=== PATIENT | female | born 1970 | race Caucasian/White ===

== ENCOUNTER 2020-04-05 21:04 | Emergency (ER) | payer BC ==
[2020-04-06] MEDS ORDERED: MORPHINE SULFATE 10 MG/ML INJ IV ONE ×2 (01:12→04:02)
[2020-04-06] MEDS ORDERED: ONDANSETRON HCL INJ/PF 4 MG/2 ML SDV IV ONE (01:12)
[2020-04-06] MEDS ORDERED: NORMAL SALINE 1000 ML 1,000 ML IV ONE (01:12)
--- NOTE | 2020-04-06 01:14 | ER Document Report ---
ED GI/ - General Chief Complaint: Nausea/Vomiting Stated Complaint: VOMITTING/ABD PAIN Time Seen by Provider: 04/06/20 01:04 Notes: Patient is a 49 year old female that comes to the Emergency Department for chief complaint of sharp mid to upper abdominal pain that started yesterday, vomiting, and a few loose stools. She vomited 3 times today, was only able to eat breakfast. She denies hematemesis or hematochezia. She denies fever, flank p ain, chest pain, shortness of breath, dysuria, vaginal discharge or bleeding. She has had a hysterectomy but no other abdominal surgeries. - Related Data Allergies/Adverse Reactions: Penicillins Allergy (Verified 04/06/20 01:09) Past Medical History - General Information source: Patient - Social History Smoking Status: Never Smoker Chew tobacco use (# tins/day): No Frequency of alcohol use: Occasional Drug Abuse: None Lives with: Family Family History: Reviewed & Not Pertinent Patient has homicidal ideation: No Past Surgical History: Reports: Hx Hysterectomy - Immunizations Immunizations up to date: Yes Hx Diphtheria, Pertussis, Tetanus Vaccination: Yes Review of Systems - Review of Systems Constitutional: No symptoms reported EENT: No symptoms reported Cardiovascular: No symptoms reported Respiratory: No symptoms reported Gastrointestinal: See HPI Genitourinary: No symptoms reported Female Genitourinary: No symptoms reported Musculoskeletal: No symptoms reported Skin: No symptoms reported Hematologic/Lymphatic: No symptoms reported Neurological/Psychological: No symptoms reported Physical Exam - Vital signs Vitals: Temp Pulse Resp BP Pulse Ox 98.1 F 75 20 148/95 H 99 04/05/20 21:19 04/05/20 21:19 04/05/20 21:19 04/05/20 21:19 04/05/20 21:19 - Notes Notes: GENERAL: Patient appears moderately uncomfortable and slightly restless HEAD: Normocephalic, atraumatic. EYES: Pupils equal, round, and reactive to light. Extraocular movements intact. ENT: Oral mucosa dry, tongue midline. Oropharynx unremarkable. Airway patent. LUNGS: Clear to auscultation bilaterally, no wheezes, rales, or rhonchi. No respiratory distress. Non-tender chest wall. HEART: Regular rate and rhythm. No murmur ABDOMEN: Tenderness in the epigastric area and generally over the upper abdomen. Mid to lower abdomen is benign. No rigidity, distention, or guarding noted. Bowel sounds present throughout. GENITOURINARY: Deferred EXTREMITIES: Moves all 4 extremities spontaneously. No edema, normal radial and dorsalis pedis pulses bilaterally. No cyanosis. BACK: no cervical, thoracic, lumbar midline tenderness. No saddle anesthesia, normal distal neurovascular exam. Moves all extremities in full range of motion. NEUROLOGICAL: Alert and oriented x3. Normal speech. Cranial nerves II through XII grossly intact. Strength 5/5 in all extremities. PSYCH: Normal affect, normal mood. SKIN: Warm, dry, normal turgor. No rashes or lesions noted. Course - Re-evaluation Re-evalutation: Initially patient appears uncomfortable. She seems to have waves of pain in the upper abdomen, she has generalized tenderness in the upper abdomen although she is tender in all parts and it is nonspecific. Vital signs unremarkable. CBC shows mild leukocytosis with elevation of neutrophils but no bandemia. Chem istry is unremarkable with unremarkable LFTs, bilirubin, and lipase. Urinalysis unremarkable. Right upper quadrant ultrasound performed but this does not show any concerning findings, no evidence of cholecystitis or obstruction. On evaluation patient is improved, she appears comfortable, patient was given Carafate, Pepcid, she will be reevaluated. On reevaluation patient has tolerated p.o. without any difficulty, she is eating crackers as well, however she has started to have the waves of pain again intermittently. She does not appear as uncomfortable as previously, however because she is starting to have waves of abdominal pain and does intermittently appear quite uncomfortable I recommended CT of the abdomen pelvis to rule out acute abdomen. Patient states she would prefer to be discharged, she states she does feel improved, she states that if she worsens she will return to the e mergency department. I discussed return precautions at length, provided with prescriptions at home for suspected upper gastrointestinal inflammation, patient states understanding and agreement with plan. - Vital Signs Vital signs: Temp Pulse Resp BP Pulse Ox 97.8 F 63 16 133/84 H 100 04/06/20 05:08 04/06/20 05:08 04/06/20 05:08 04/06/20 05:08 04/06/20 05:08 - Laboratory Result Diagrams: 04/06/20 01:19 07/07/20 01:19 Laboratory results interpreted by me: 04/06/20 04/06/20 04/06/20 01:19 01:19 03:25 WBC 12.6 H RBC 5.60 H Hgb 16.6 H Hct 49.4 H Lymph % (Auto) 9.9 L Absolute Neuts (auto) 10.4 H Seg Neutrophils % 82.6 H Sodium 136.6 L Glucose 144 H Total Protein 8.5 H Urine Ketones TRACE H Urine Blood SMALL H Discharge - Discharge Clinical Impression: Upper abdominal pain Condition: Stable Disposition: HOME, SELF-CARE Additional Instructions: Your work-up today shows dehydration but no other concerning findings at this time. The exact cause of your symptoms is uncertain, this could be viral causing inflammation of the upper gastrointestinal tract, vomiting, diarrhea, pain. Symptoms should simply resolve with time. Take medications as prescribed including the nausea medication, start with clear fluids, bland diet, and slowly progress. Follow-up with primary care. Return if you worsen including severe worsening pain, vomiting, fever, or any other concerning or worsening symptoms. Prescriptions: Sucralfate [Carafate 1 gm Tablet] 1 gm PO QID #20 tablet Famotidine [Pepcid 20 mg Tablet] 20 mg PO BID #14 tablet Ondansetron [Zofran Odt 4 mg Tablet] 1 - 2 tab PO Q4H PRN #15 tab.rapdis PRN Reason: For Nausea/Vomiting Forms: Return to Work
[2020-04-06 01:29] LABS: ABSOLUTE BASOPHILS # (AUTO) 0.1 10^3/uL (0.0-0.2); ABSOLUTE EOSINOPHILS # (AUTO) 0.1 10^3/uL (0.0-0.6); ABSOLUTE LYMPHOCYTES (AUTO) 1.3 10^3/uL (0.5-4.7); ABSOLUTE MONOCYTES (AUTO) 0.8 10^3/uL (0.1-1.4); ABSOLUTE NEUT (AUTO) 10.4 10^3/uL (1.7-8.2); BASOPHILS % (AUTO) 0.6 % (0-2); EOSINOPHILS % (AUTO) 0.9 % (0-6); HEMATOCRIT 49.4 % (36.0-47.0); HEMOGLOBIN 16.6 g/dL (12.0-15.5); LYMPHOCYTES % (AUTO) 9.9 % (13-45); MEAN CORPUSCULAR HEMOGLOBIN 29.6 pg (27.0-33.4); MEAN CORPUSCULAR HGB CONC 33.6 g/dL (32.0-36.0); MEAN CORPUSCULAR VOLUME 88 fl (80-97); PLATELET COUNT 344 10^3/uL (150-450); RED CELL DISTRIBUTION WIDTH 13.4 % (11.5-14.0); SEGMENTED NEUTROPHILS % (AUTO) 82.6 % (42-78); TOTAL CELLS COUNTED % (AUTO) 100 %; WHITE BLOOD COUNT 12.6 10^3/uL (4.0-10.5)
[2020-04-06 01:44] LABS: ALBUMIN 4.8 g/dL (3.5-5.0); ALKALINE PHOSPHATASE 75 U/L (38-126); ANION GAP 9 (5-19); ASPARTATE AMINO TRANSFERASE 28 U/L (14-36); BILIRUBIN,TOTAL 0.7 mg/dL (0.2-1.3); BLOOD UREA NITROGEN 12 mg/dL (7-20); CALCIUM 10.2 mg/dL (8.4-10.2); CARBON DIOXIDE 26 mmol/L (22-30); CHLORIDE 102 mmol/L (98-107); GLUCOSE 144 mg/dL (75-110); POTASSIUM 4.7 mmol/L (3.6-5.0); TOTAL PROTEIN 8.5 g/dL (6.3-8.2)
--- NOTE | 2020-04-06 02:47 | RADIOLOGY REPORT (SQ) ---
Ultrasound of the right upper quadrant of the abdomen: 04/06/2020 1:45 AM CDT Technique: Multiple grayscale color Doppler images of the right upper quadrant of the abdomen were obtained. Comparison: None available History: 49-year old patient with epigastric pain, vomiting. Findings: The visualized portions of the hepatic parenchyma appear diffusely echogenic. There is normal directional flow seen within the main portal vein. There is no evidence of pericholecystic fluid, gallbladder wall thickening, or cholelithiasis. The common duct measures 6-7 mm. The right kidney measures up to 10.2 cm in length. The right kidney demonstrates normal cortical echogenicity with no evidence to suggest hydronephrosis. The visualized portions of the IVC, abdominal aorta, and pancreatic head appear normal. No free intraperitoneal fluid is seen. Impression: 1. No cholelithiasis is seen. The common duct is within normal limits of size. 2. Hepatic steatosis
[2020-04-06] MEDS ORDERED: SUCRALFATE 1 GM TABLET PO ONE (02:51)
[2020-04-06] MEDS ORDERED: FAMOTIDINE 20 MG TABLET PO ONE (02:51)
[2020-04-06 03:44] LABS: APPEARANCE,URINE SLIGHTLY-CLOUDY; BILIRUBIN,URINE NEGATIVE (NEGATIVE); COLOR,URINE YELLOW; GLUCOSE, URINE NEGATIVE (NEGATIVE); KETONES,URINE TRACE mg/dL (NEGATIVE); LEUKOCYTE ESTERASE,URINE NEGATIVE (NEGATIVE); NITRITE,URINE NEGATIVE (NEGATIVE); PROTEIN,URINE NEGATIVE (NEGATIVE); URINE SPECIFIC GRAVITY 1.024; UROBILINOGEN,URINE NEGATIVE mg/dL (<2.0)
[2020-04-06] MEDS ORDERED: HYDROCODONE/ACETAMINOPHEN 5-325 MG (6 TAB/ER DISP) PO PRN (04:53)
[2020-04-06] MEDS ORDERED: ONDANSETRON ODT 4 MG TAB (6 TAB/ER DISP) PO PRN (04:53)
[2020-04-06 05:13] VITALS: BP 133/84
== END 2020-04-06 06:01 | disposition home or self-care (01) ==
LOC: ER 21:04
DX: R10.10 Upper abdominal pain, unspecified (principal); R11.2 Nausea with vomiting, unspecified; Z88.0 Allergy status to penicillin
CPT/HCPCS: 96376; 99284; 96361; 96374; 96375; 36415; 83690; 85025; 80053; 81001; 76705; J2270; J2405; J7030